=== PATIENT | male | born 1975 | race Hispanic/Latino ===

== ENCOUNTER 2021-07-09 13:35 | Emergency (ER) | payer SELFPAY ==
[2021-07-09] MEDS ORDERED: LIDOCAINE (2%) 20 MG/1 ML VIAL 20 ML MDV INFILTRATI STA (22:05)
[2021-07-09] MEDS ORDERED: TETANUS,DIPH,PERTUSS(ACELL) VACCINE 0.5 ML SYRINGE IM ONE (22:05)
[2021-07-09] MEDS ORDERED: SODIUM CHLORIDE 0.9% IRR 500 ML BOTTLE IR ONE (22:05)
--- NOTE | 2021-07-09 22:45 | Emergency Department Report ---
ED Laceration HPI - HPI Chief Complaint: Wound/Laceration Stated Complaint: LT ARM LACERATION Time Seen by Provider: 07/09/21 21:39 Occurred When: Today Location: Upper Extremity Severity: moderate Tetanus Status: Unknown Laceration Symptoms: Yes Pain, No Foreign Body Sensation, No Numbness, No Weakness Other History: 25-year-old male referred for evaluation was losing his balance to grasp onto the wall on his way down his forearm without any nail during the fall resulting anterior leg laceration ldg upper vascular supply. care. presents emerged from today morning evaluation and treatment ED Review of Systems ROS: Stated complaint: LT ARM LACERATION Other details as noted in HPI Comment: All other systems reviewed and negative ED Past Medical Hx - Past Medical History Previous Medical History?: Yes Hx Hypertension: Yes - Surgical History Past Surgical History?: No - Social History Smoking Status: Never Smoker Substance Use Type: Alcohol - Medications Home Medications: Home Medications Medication Instructions Recorded Confirmed Last Taken Type Chlorhexidine Gluconate 5 ml TP BID #240 07/09/21 Unknown Rx [Antiseptic Skin Cleanser] Mupirocin [Bactroban 2%] 1 applic TP TID #1 tube 07/09/21 Unknown Rx cephALEXin [Keflex] 500 mg PO Q8HR #21 cap 07/09/21 Unknown Rx Laceration Physical Exam - Exam General: Vital signs noted. No distress. Alert and acting appropriately. Wound Length (cm): 7 Laceration Location: Upper Extremity Laceration Exam: Yes Normal Distal CMS, No Foreign Body, No Exposed Tendon, Vessel, or Nerve, No Tendon Injury ED Course Vital Signs 07/09/21 07/09/21 07/09/21 14:34 21:14 21:19 Temperature 97.3 F L 98.5 F Pulse Rate 78 57 L 57 L Respiratory 20 14 Rate Blood Pressure 134/86 Blood Pressure 125/82 134/86 [Right] O2 Sat by Pulse 99 98 Oximetry 07/09/21 21:24 Temperature Pulse Rate Respiratory Rate Blood Pressure Blood Pressure [Right] O2 Sat by Pulse 100 Oximetry - Laceration /Wound Repair Left Arm Wound Location: upper extremity Wound Length (cm): 7 Wound's Depth, Shape: into muscle, linear, contused tissue Wound Explored: foreign body removed Irrigated w/ Saline (ccs): 450 Betadine Prep?: Yes Volume Anesthetic (ccs): 5 Wound Debrided: moderate Wound Repaired With: sutures Suture Size/Type: 3:0 Number of Sutures: 7 Layer Closure?: No Sterile Dressing Applied?: Yes Critical care attestation.: If time is entered above; I have spent that time in minutes in the direct care of this critically ill patient, excluding procedure time. ED Disposition Clinical Impression: Laceration of forearm, left Disposition: HOME / SELF CARE / HOMELESS Is pt being admited?: No Does the pt Need Aspirin: No Condition: Stable Instructions: Laceration Care, Adult, Sutured Wound Care Prescriptions: Chlorhexidine Gluconate [Antiseptic Skin Cleanser] 5 ml TP BID #240 Mupirocin [Bactroban 2%] 1 applic TP TID #1 tube cephALEXin [Keflex] 500 mg PO Q8HR #21 cap Referrals: ERIN GAUTAM MD [Primary Care Provider] - 3-5 Days
[2021-07-10 00:11] VITALS: BP 132/87
== END 2021-07-10 00:11 | disposition home or self-care (01) ==
LOC: ED 13:35
DX: S51.812A Laceration without foreign body of left forearm, initial encounter (principal); X58.XXXA Exposure to other specified factors, initial encounter; Y93.89 Activity, other specified; Y92.89 Other specified places as the place of occurrence of the external cause; Y99.8 Other external cause status
CPT/HCPCS: 12002; 90471; 90715; 99282; J3490